=== PATIENT | female | born 1970 | race Caucasian/White ===

== ENCOUNTER → 2023-12-16 16:13 | Outpatient (BNVA) | payer OTHER, BC, MEDICAID, SELFPAY | PROVIDERS: PCP Physician Assistant; Visit Provider Family Medicine Adult Medicine | DX: R30.0 Dysuria (principal) | CPT/HCPCS: 81000 ==

== ENCOUNTER 2024-06-13 13:55 | Emergency (ER) | payer OTHER, BC, MEDICAID, SELFPAY ==
[2024-06-13 14:12] VITALS: BP 150/89; PULSE 76; RESP 18; TEMP 36.6; O2SAT 98; BMI 37.8
[2024-06-13 14:15] VITALS: BP 150/89; PULSE 76; RESP 18; TEMP 36.6; O2SAT 98
--- NOTE | 2024-06-13 14:17 | ED_ITS ---
HPI - Extremity Problem General: Chief complaint: Extremity Injury, Upper Stated complaint: Lt Shoulder inj Time Seen by Provider: 06/13/24 14:17 History of Present Illness: 53-year-old female states she was carryi [employer] groceries and the kids have left a board out on the floor that caused her to trip and fall. Patient landed with her left shoulder stretched out above her head and had felt a popping sensation. Patient reports that her son helped her maneuver it back down but since then she has had increased pain and guarded movement due to the pain. Distal pulses and sensation are intact. No obvious deformity is noted. Related Data Home Medications Medication Instructions Recorded Confirmed levothyroxine 50 mcg tablet 50 mcg PO DAILY 07/08/23 12/16/23 (Synthroid) omeprazole 20 mg capsule,delayed 20 mg PO DAILY 07/08/23 12/16/23 release Previous Rx's Medication Instructions Recorded phenazopyridine 200 mg tablet 200 mg PO TID PRN urine/bladder 12/16/23 (Pyridium) pain #30 tabs celecoxib 200 mg capsule 200 mg PO BID PRN pain #20 caps 06/13/24 Allergies Allergy/AdvReac Type Severity Reaction Status Date / Time No Known Allergies Allergy Unverified 12/16/23 16:14 Review of Systems General: Reports: 10 or more systems reviewed and unremarkable except in HPI and below Musc: Reports: joint pain (Left shoulder joint area) [facility] ED PFSH: Medical History (Updated 06/13/24 @ 14:57 by JESI Guerrero) Dehydration Dysuria Constipation by delayed colonic transit Lower abdominal pain Physical Exam Const: COMMON NORMALS: alert HENMT: COMMON NORMALS: normocephalic HEAD & SCALP: normocephalic Neck/C-Spine: COMMON NORMALS: full ROM Resp: COMMON NORMALS: normal respiratory effort Cardio: COMMON NORMALS: regular rate RATE: regular rate GI: COMMON NORMALS: Soft to palpation PALPATION: Yes Soft to palpation Back/Pelvis: COMMON NORMALS: thoracic and lumbar spine normal to inspection Extremity: LEFT UPPER EXTREMITY: Yes shoulder joint (Decreased range of motion due to pain, no obvious deformity) Left shoulder joint: Yes inspection, Yes palpation, Yes ROM and Yes neurovascular exam Neuro: SENSORIUM/ORIENTATION: Yes alert Skin: COMMON NORMALS: turgor normal GENERAL SKIN EXAM: turgor normal Course Vital Signs: Vital signs: Vital Signs Temperature 97.8 F 06/13/24 14:15 Pulse Rate 76 06/13/24 14:15 Respiratory Rate 18 06/13/24 14:15 Blood Pressure 150/89 06/13/24 14:15 Pulse Oximetry 98 06/13/24 14:15 Oxygen Delivery Me thod Room Air 06/13/24 14:15 MDM - Extremity (Nontraumatic) Medical Decision Making 53-year-old female comes in today for complaints of injury to the left shoulder. On exam patient has decreased range of motion due to pain. Distal pulses and sensation are intact. No obvious deformity is noted. Differential diagnosis includes impacted fracture, dislocation, sprain, rotator cuff injury. X-ray noted no fracture or dislocation. Reviewed exam with patient with recommendation for treatment for shoulder sprain. Patient reported understanding agreed to plan. XR interpretation done by ED provider, pending radiology final review Discharge Plan Discharge Patient Disposition: Home Clinical Impression: Sprain of left shoulder girdle Qualifiers: Encounter type: initial encounter Qualified Code(s): S43.92XA - Sprain of unspecified parts of left shoulder girdle, initial encounter Condition: Stable Prescriptions: New celecoxib 200 mg capsule 200 mg PO BID PRN (Reason: pain) Qty: 20 0RF No Action levothyroxine [Synthroid] 50 mcg tablet 50 mcg PO DAILY omeprazole 20 mg capsule,delayed release(DR/EC) 20 mg PO DAILY phenazopyridine [Pyridium] 200 mg tablet 200 mg PO TID PRN (Reason: urine/bladder pain) Qty: 30 0RF Discharge Orders: Discharge ED (Routine); Ordered 06/13/24 Ordered By: Wood Ojeda Referrals: Luma Cui PA-C [Primary Care Provider] - Discharge Diet: Usual diet Discharge Activity: Increase activity as tolerated Patient Instructions: Shoulder Sprain (ED) Activity Restrictions/Additional Instructions: Sprain of the shoulder occurs when ligaments and tendons of the shoulder girdle are stretched abnormally and cause tearing. This will cause pain and inflammation to settle into the shoulder. 1 should use ice and activity as tolerated for the recovery of the shoulder. Ice will help with pain and inflammation. Medications like acetaminophen and ibuprofen may be used to help with pain. I have ordered celecoxib to be used instead of ibuprofen as this may be more gentle on your stomach while still providing significant relief for pain and inflammation. Follow-up with primary care in 1 week for recheck. 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
--- NOTE | 2024-06-13 14:19 | XRR_ITS ---
PROCEDURE INFORMATION: Exam: XR Left Shoulder Exam date and time: 06/13/2024 2:38 PM Age: 53 years old Clinical indication: Injury or trauma; Fall; Blunt trauma (contusions or hematomas); Shoulder; Left; Additional info: Fall injury TECHNIQUE: Imaging protocol: Radiologic exam of the left shoulder. Views: 2 or more views. COMPARISON: No relevant prior studies available. FINDINGS: Bones/joints: Multilevel degenerative changes of varying severity in the visualized spine. Small osteophytes at the left glenoid. No acute fracture. No dislocation. Lungs: Visualized lungs are clear. Heart/Mediastinum: Visualized portions of the cardiac silhouette are moderately enlarged. Soft tissues: Surgical clip in the lower right neck soft tissues. No soft tissue swelling. No radiopaque foreign body. XR/XR shoulder LT min 2V* [id number] IMPRESSION: 1. No acute fracture of the left shoulder. Followup radiographs recommended in 7-14 days if clinical concern for fracture persists. 2. Incidental/nonacute findings are listed in the report.
[2024-06-13 15:12] VITALS: BP 148/88; PULSE 79; O2SAT 96
== END 2024-06-13 15:12 | disposition home or self-care (01) ==
PROVIDERS: Emergency Provider Nurse Practitioner Family; PCP Physician Assistant
DX: S43.92XA Sprain of unspecified parts of left shoulder girdle, initial encounter (principal); W18.09XA Striking against other object with subsequent fall, initial encounter
CPT/HCPCS: 73030; 99283

== ENCOUNTER → 2024-07-09 14:09 | Outpatient (BNVA) | payer BC, MEDICAID, SELFPAY | PROVIDERS: PCP Physician Assistant; Visit Provider Orthopaedic Surgery | DX: M25.512 Pain in left shoulder (principal) | CPT/HCPCS: 73030 ==

== ENCOUNTER 2024-07-20 11:22 | Outpatient (CLI) | payer OTHER, BC, MEDICAID, SELFPAY ==
--- NOTE | 2024-07-20 11:45 | MR_ITS ---
WS: [id number] MRI LEFT SHOULDER HISTORY: shoulder pain COMPARISON: None available. TECHNIQUE: Multiplanar sequences of the shoulder joint are submitted. Moderate AC joint arthritis. Small AC joint osteophytes. Small amount of fluid in the subacromial bur sa. Large amount of fluid in the subdeltoid bursa. Minimal subacromial impingement. No os acromion. N ormal position of the biceps tendon. Insertion site tear of the anteriormost supraspinatus tendon near the biceps labral complex. No retra ction of the tendon. Subscapularis tendon and the infraspinatus tendons are normal. Abnormal glenoid. Osseous defect with displacement involving the anterior inferior glenoid with avuls ion of the labrum and abnormal signal in the glenoid. Marrow edema is noted along the inferior glenoi d. In the axillary pouch there is an ovoid loose body which is low to intermediate signal on all sequ ences measuring 10 x 8 mm. Cortical defect noted along the superior lateral humeral head associated c losely with the supraspinatus insertion site tear. MR/MR shoulder LT wo con* [id number] IMPRESSION: 1. Hill-Sachs deformity with an osseous Bankart. Avulsion of the anterior infe rior glenoid and labrum. 2. Mild circumscribed 10 x 8 mm loose body in the axillary pouch. This may be from the glenoid fracture. 3. Moderate AC joint arthritis. 4. Insertion site tear of the anteriormost supraspinatus tendon near the bicep s labral complex.
== END 2024-07-20 11:23 | disposition home or self-care (01) ==
LOC: RAD 11:23
PROVIDERS: PCP Physician Assistant; Visit Provider Orthopaedic Surgery
DX: S42.292A Other displaced fracture of upper end of left humerus, initial encounter for closed fracture (principal); S46.012A Strain of muscle(s) and tendon(s) of the rotator cuff of left shoulder, initial encounter; S43.432A Superior glenoid labrum lesion of left shoulder, initial encounter; M89.712 Major osseous defect, left shoulder region; M66.88 Spontaneous rupture of other tendons, other sites; M24.012 Loose body in left shoulder; X58.XXXA Exposure to other specified factors, initial encounter
CPT/HCPCS: 73221

== ENCOUNTER → 2025-03-27 13:50 | Outpatient (BNVA) | payer BC, SELFPAY | PROVIDERS: PCP Physician Assistant; Visit Provider Family Medicine | DX: R39.9 Unspecified symptoms and signs involving the genitourinary system (principal) | CPT/HCPCS: 81000 ==